=== PATIENT | female | born 1955 ===

== ENCOUNTER 2020-05-08 21:50 | Outpatient (REF) | payer BC, SELFPAY ==
[2020-05-10 13:25] LABS: Patient Race White; SARS-CoV-2 RNA Undetected (Undetected); SARS-CoV-2 Specimen Source Nasal
== END 2020-05-08 22:10 ==
LOC: NCHCN 21:50
PROVIDERS: PCP Neuromusculoskeletal Medicine & OMM; Visit Provider Nurse Practitioner Family
DX: Z11.59 Encounter for screening for other viral diseases (principal)
CPT/HCPCS: U0003